=== PATIENT | male | born 1985 | race Caucasian/White ===

== ENCOUNTER 2024-04-05 02:35 | Inpatient (IN) | payer MEDICAID ==
[~2024-04-05] VITALS: Ht 167.6 cm; Wt 97.5 kg
[~2024-04-05 02:35] MED LIST: METO25TA6 PO
[2024-04-05] MEDS: LORAZEPAM 2MG/ML INJ IV STA (04:41)
[2024-04-05 04:48] LABS: BASOPHILS % 0.4 % (0.0-2.0); EOSINOPHILS % 0.1 % (0.0-5.0); HEMATOCRIT. 41.9 % (42.0-52.0); HEMOGLOBIN. 13.8 g/dL (14.0-18.0); LYMPHOCYTES % 7.2 % (20.0-50.0); MEAN CORPUSCULAR VOLUME 84.8 fL (80.0-94.0); MEAN PLATELET VOLUME 7.8 fl (7.4-10.4); MONOCYTES % 13.1 % (2.0-8.0); NEUTROPHILS % 79.2 % (40.0-76.0); PLATELET 353 x1000/uL (130-400); RED BLOOD CELL COUNT 4.95 mill/uL (4.7-6.1); RED CELL DISTRIBUTION WIDTH 17.8 % (11.6-14.6); WHITE BLOOD COUNT 10.6 x1000/uL (4.5-11.0)
[2024-04-05] MEDS: SODIUM CHLORIDE 0.9% 1,000 ML IV ONE (04:48)
[2024-04-05 04:49] LABS: CHLORIDE 102 mEq/L (98-107); POTASSIUM 3.3 mEq/L (3.5-5.1); SODIUM 140 mEq/L (136-145)
[2024-04-05 04:50] LABS: CALCIUM 10.2 mg/dL (8.7-10.4); CARBON DIOXIDE 27 mEq/L (21-32)
[2024-04-05 04:55] LABS: GLUCOSE 128 mg/dL (70-105); UREA NITROGEN BLOOD 6 mg/dL (9-23)
[2024-04-05 04:56] LABS: ETHANOL BLOOD < 10 mg/dL (<10); TROPONIN I HIGH SENSITIVITY 9 ng/L (3.0-53)
[2024-04-05 04:57] LABS: ACETAMINOPHEN < 2 ug/mL (10-30)
[2024-04-05 05:00] LABS: THYROID STIMULATING HORMONE 2.11 uIU/mL (0.55-4.78)
[2024-04-05 05:15] LABS: CREATININE 1.5 mg/dL (0.6-1.3)
[2024-04-05 07:30] LABS: TROPONIN I HIGH SENSITIVITY 9 ng/L (3.0-53)
[2024-04-05] MEDS ORDERED: CLONIDINE 0.1MG TABLET PO PRN (10:15)
[2024-04-05] MEDS ORDERED: ACETAMINOPHEN 325MG TABLET PO PRN ×2 (10:15)
[2024-04-05] MEDS ORDERED: ONDANSETRON HCL 4MG/2ML INJ IV PRN (10:15)
[2024-04-05] MEDS ORDERED: LORAZEPAM 2MG/ML INJ IV PRN (10:15)
[2024-04-05] MEDS ORDERED: IPRATROPIUM/ALBUTEROL 0.5-3(2.5)MG/3ML NEB HHN PRN (10:15)
[2024-04-05] MEDS: POTASSIUM CHLORIDE 20MEQ TABLET SR PO NR (11:07)
[2024-04-05] MEDS: SODIUM CHLORIDE 0.9% 1,000 ML IV SCH (11:08)
[2024-04-05] MEDS: METOPROLOL TARTRATE 25MG TABLET PO SCH (11:08)
[2024-04-06 09:09] LABS: BASOPHILS % 0.9 % (0.0-2.0); EOSINOPHILS % 2.3 % (0.0-5.0); HEMATOCRIT. 41.8 % (42.0-52.0); HEMOGLOBIN. 13.3 g/dL (14.0-18.0); LYMPHOCYTES % 18.5 % (20.0-50.0); MEAN CORPUSCULAR HEMOGLOBIN 27.1 pg (28.0-32.0); MEAN CORPUSCULAR HGB CONC 31.8 g/dL (31.0-37.0); MEAN PLATELET VOLUME 7.6 fl (7.4-10.4); MONOCYTES % 14.2 % (2.0-8.0); NEUTROPHILS % 64.1 % (40.0-76.0); PLATELET 278 x1000/uL (130-400); RED BLOOD CELL COUNT 4.92 mill/uL (4.7-6.1); RED CELL DISTRIBUTION WIDTH 18.6 % (11.6-14.6); WHITE BLOOD COUNT 6.1 x1000/uL (4.5-11.0)
[2024-04-06 09:34] LABS: CARBON DIOXIDE 21 mEq/L (21-32); CHLORIDE 109 mEq/L (98-107); POTASSIUM 3.7 mEq/L (3.5-5.1); SODIUM 140 mEq/L (136-145)
[2024-04-06 09:35] LABS: CALCIUM 9.2 mg/dL (8.7-10.4)
[2024-04-06 09:40] LABS: CREATININE 0.8 mg/dL (0.6-1.3); GLUCOSE 99 mg/dL (70-105); UREA NITROGEN BLOOD 6 mg/dL (9-23)
[2024-04-06 09:41] LABS: ALANINE AMINOTRANSFERASE 37 IU/L (10-49); ALBUMIN 4.1 g/dL (3.2-4.8)
[2024-04-06 09:42] LABS: ASPARTATE AMINOTRANSFERASE 16 IU/L (<34); BILIRUBIN TOTAL 0.6 mg/dL (0.1-1.0)
[2024-04-06] MEDS: PANTOPRAZOLE 40MG DR TABLET PO SCH (10:35)
[2024-04-06 11:22] LABS: CLARITY URINE CLEAR (CLEAR); COLOR URINE YELLOW (YELLOW); GLUCOSE URINE NEGATIVE (NEGATIVE); KETONES URINE NEGATIVE (NEGATIVE); LEUKOCYTE ESTERASE URINE NEGATIVE (NEGATIVE); NITRITE URINE NEGATIVE (NEGATIVE); OCCULT BLOOD URINE NEGATIVE (NEGATIVE); PROTEIN URINE NEGATIVE (NEGATIVE); SPECIFIC GRAVITY URINE 1.012 (1.005-1.030)
[2024-04-06 11:33] LABS: *AMPHETAMINES SCREEN URINE NEGATIVE (NEGATIVE); *BENZODIAZEPINES SCREEN URINE NEGATIVE (NEGATIVE)
[2024-04-06 11:34] LABS: *BARBITURATES SCREEN URINE NEGATIVE (NEGATIVE); *COCAINE SCREEN URINE NEGATIVE (NEGATIVE); CANNABINOID URINE SCREEN PRESUMPTIVE POSITIVE (NEGATIVE); ECSTASY MDMA SCREEN URINE NEGATIVE (NEGATIVE); METHADONE URINE SCREEN NEGATIVE (NEGATIVE); OPIATES URINE SCREEN NEGATIVE (NEGATIVE); PHENCYCLIDINE URINE SCREEN NEGATIVE (NEGATIVE)
[2024-04-07 05:45] VITALS: BP 137/85; PULSE 78; RESP 18; TEMP 36.50292; TEMP 36.5292; O2SAT 95
[2024-04-07 08:05] VITALS: BP 138/76; PULSE 83; RESP 18; TEMP 36.3918; O2SAT 96
[2024-04-07] MEDS ORDERED: GABA-529 PO (11:56)
[2024-04-07] MEDS ORDERED: ARIP300S3 IM (11:56)
[2024-04-07] MEDS ORDERED: QUET25TA PO (11:56)
[2024-04-07 12:01] VITALS: BP 134/84; PULSE 84; RESP 18; TEMP 36.55848; O2SAT 96
[2024-04-07 16:00] VITALS: BP 134/82; PULSE 82; RESP 18; TEMP 36.22512; O2SAT 95
[2024-04-07] MEDS: QUETIAPINE FUMARATE 50MG TABLET PO SCH (18:35)
[2024-04-07 20:00] VITALS: BP 120/78; PULSE 82; RESP 19; TEMP 36.83628; O2SAT 100
[2024-04-07] MEDS: TRAZODONE HCL 50MG TABLET PO SCH (21:16)
[2024-04-07 22:40] LABS: HEPATITIS B SURFACE ANTIGEN NEGATIVE (Negative)
[2024-04-07 23:02] LABS: HEPATITIS C AB NON REACTIVE (Neg) (Negative)
[2024-04-08] VITALS: BP 128/76; PULSE 75; RESP 17; TEMP 36.114; O2SAT 98
[2024-04-08 04:00] VITALS: BP 131/72; PULSE 71; RESP 16; TEMP 36.44736; O2SAT 97
[2024-04-08 08:00] VITALS: BP 110/73; PULSE 77; RESP 18; TEMP 36.72516; O2SAT 97
[2024-04-08 12:00] VITALS: BP 131/90; PULSE 86; RESP 18; TEMP 36.6696; O2SAT 97
[2024-04-08 16:00] VITALS: BP 118/72; PULSE 91; RESP 20; TEMP 36.78072; O2SAT 97
[2024-04-08 20:00] VITALS: BP 113/64; PULSE 87; RESP 18; TEMP 35.66952; O2SAT 94
[2024-04-09] VITALS: BP 109/68; PULSE 92; RESP 18; TEMP 36.44736; O2SAT 95
[2024-04-09 04:00] VITALS: BP 112/72; PULSE 89; RESP 18; TEMP 37.05852; O2SAT 96
[2024-04-09 08:00] VITALS: BP 122/72; PULSE 77; RESP 18; TEMP 36.50292; O2SAT 97
[2024-04-09 12:00] VITALS: BP 117/78; PULSE 79; RESP 17; TEMP 36.44736; O2SAT 96
[2024-04-09 16:00] VITALS: BP 116/78; PULSE 74; RESP 18; TEMP 36.50292; O2SAT 95
[2024-04-09 20:00] VITALS: BP 111/52; PULSE 71; RESP 20; TEMP 36.50292; O2SAT 95
[2024-04-09] MEDS: QUETIAPINE FUMARATE 50MG TABLET PO SCH (21:53)
[2024-04-10] VITALS: BP 125/54; PULSE 72; RESP 20; TEMP 36.55848; O2SAT 95
[2024-04-10 04:00] VITALS: BP 134/55; PULSE 75; RESP 20; TEMP 36.3918; O2SAT 100
[2024-04-10 08:00] VITALS: BP 130/58; PULSE 86; RESP 18; TEMP 36.50292; O2SAT 97
[2024-04-10 12:00] VITALS: BP 128/82; PULSE 77; RESP 17; TEMP 36.50292; O2SAT 100
[2024-04-10 16:00] VITALS: BP 119/72; PULSE 78; RESP 18; TEMP 36.72516; O2SAT 100
[2024-04-10 20:00] VITALS: BP 117/63; PULSE 76; RESP 18; TEMP 35.78064; O2SAT 96
[2024-04-11] VITALS: BP 96/50; PULSE 67; RESP 18; TEMP 36.3918; O2SAT 98
[2024-04-11 04:00] VITALS: BP 104/60; PULSE 65; RESP 18; TEMP 36.61404; O2SAT 100
[2024-04-11 08:00] VITALS: BP 123/59; PULSE 68; RESP 18; TEMP 36.61404; O2SAT 97
[2024-04-11 12:00] VITALS: BP 118/57; PULSE 74; RESP 18; TEMP 36.22512; O2SAT 99
[2024-04-11] MEDS ORDERED: QUET50TA PO (13:10)
[2024-04-11] MEDS ORDERED: TRAZ-251 PO (13:10)
[2024-04-11] MEDS ORDERED: PANT40TA51 PO (13:10)
[2024-04-11 16:00] VITALS: BP 124/71; PULSE 65; RESP 18; TEMP 36.00288; O2SAT 97
[2024-04-11 20:00] VITALS: BP 115/67; PULSE 68; RESP 18; TEMP 36.6696; O2SAT 97
[2024-04-12 04:00] VITALS: BP 124/68; PULSE 65; RESP 18; TEMP 36.78072; O2SAT 97
[2024-04-12 08:00] VITALS: BP 111/61; PULSE 67; RESP 20; TEMP 36.28068; O2SAT 97
[2024-04-12 12:00] VITALS: BP 105/53; PULSE 62; RESP 20; TEMP 36.33624; O2SAT 97
[2024-04-12 16:00] VITALS: BP 125/71; PULSE 68; RESP 20; TEMP 36.33624; O2SAT 97
[2024-04-12 20:00] VITALS: BP 108/60; PULSE 74; RESP 20; TEMP 35.61396; O2SAT 97
[2024-04-13] VITALS: BP 105/53; PULSE 76; RESP 20; TEMP 35.8362; O2SAT 95
[2024-04-13 08:00] VITALS: BP 116/69; PULSE 65; RESP 18; TEMP 36.55848; O2SAT 97
[2024-04-13 12:00] VITALS: BP 108/56; PULSE 67; RESP 18; TEMP 36.22512; O2SAT 97
[2024-04-13 16:00] VITALS: BP 117/63; PULSE 70; RESP 18; TEMP 36.3918; O2SAT 97
[2024-04-13 20:00] VITALS: BP 127/72; PULSE 70; RESP 18; TEMP 37.61412; O2SAT 100
[2024-04-14] VITALS: BP 117/69; PULSE 72; RESP 18; TEMP 36.89184; O2SAT 100
[2024-04-14 04:00] VITALS: BP 121/69; PULSE 74; RESP 18; TEMP 37.11408; O2SAT 100
[2024-04-14 08:00] VITALS: BP 120/70; PULSE 82; RESP 20; TEMP 36.6696; O2SAT 95
[2024-04-14 12:00] VITALS: BP 123/55; PULSE 73; RESP 20; TEMP 36.6696; O2SAT 98
[2024-04-14 16:00] VITALS: BP 128/71; PULSE 76; RESP 20; TEMP 36.78072; O2SAT 100
[2024-04-14 20:00] VITALS: PULSE 73; RESP 18; TEMP 37.05852; O2SAT 96
[2024-04-15] VITALS: BP 123/51; PULSE 81; RESP 17; TEMP 36.33624; O2SAT 98
[2024-04-15 04:00] VITALS: BP 114/63; PULSE 82; RESP 16; TEMP 36.50292; O2SAT 100
[2024-04-15 08:00] VITALS: BP 100/52; PULSE 67; RESP 19; TEMP 35.22504; O2SAT 96
[2024-04-15] MEDS: QUETIAPINE FUMARATE 50MG TABLET PO SCH (10:28)
[2024-04-15 16:00] VITALS: BP 103/53; PULSE 74; RESP 18; TEMP 35.2; O2SAT 94
[2024-04-15] MEDS: DOCUSATE SODIUM 100MG CAPSULE PO PRN (16:37)
[2024-04-15 20:00] VITALS: PULSE 76; RESP 18; TEMP 36.4; O2SAT 94
[2024-04-16] VITALS (8 sets, daily range): BP systolic 100–112; BP diastolic 41–68; PULSE 66–88; RESP 14–20; TEMP 35.9–37.1; O2SAT 94–97
== END 2024-04-16 21:40 | DRG 115 ==
LOC: ER 02:35 → 6EST 06:08 → EDBEDREQSVC 12:17 → 6EST 04-07 07:19
PROVIDERS: ADMIT Internal Medicine; ATTEND Internal Medicine
PROC: GZ56ZZZ Individual Psychotherapy, Supportive (ICD-10-PCS; principal; 2024-04-12)
DX: S09.8XXA Other specified injuries of head, initial encounter (principal); N17.9 Acute kidney failure, unspecified; D72.0 Genetic anomalies of leukocytes; R45.851 Suicidal ideations; D64.9 Anemia, unspecified; E87.6 Hypokalemia; D72.821 Monocytosis (symptomatic); Z20.822 Contact with and (suspected) exposure to COVID-19; G40.909 Epilepsy, unspecified, not intractable, without status epilepticus; R00.0 Tachycardia, unspecified; F31.9 Bipolar disorder, unspecified; F20.9 Schizophrenia, unspecified; K21.9 Gastro-esophageal reflux disease without esophagitis; I10 Essential (primary) hypertension; G47.00 Insomnia, unspecified; W18.39XA Other fall on same level, initial encounter; Z91.148 Patient's other noncompliance with medication regimen for other reason; Y93.89 Activity, other specified; Y92.89 Other specified places as the place of occurrence of the external cause; Y99.8 Other external cause status
CPT/HCPCS: 36415; 71045; 80048; 80307; 80320; 80329; 84443; 84484; 85025; 86705; 87340; 87426; 99291; A4606; A4663; J2060; J7030; G0480

== ENCOUNTER 2024-04-28 03:27 | Emergency (ER) | payer BC, MEDICAID ==
[~2024-04-28] VITALS: Ht 175.3 cm; Wt 110.0 kg
[~2024-04-28 03:27] MED LIST changes: +GABA-529 PO; +PANT40TA51 PO; +QUET50TA PO; +TRAZ-251 PO
[2024-04-28 03:48] VITALS: O2SAT 99
[2024-04-28] MEDS: HALOPERIDOL LACTATE 5MG/ML VIAL IM ONE (04:00)
[2024-04-28 05:06] LABS: BASOPHILS % 0.3 % (0.0-2.0); EOSINOPHILS % 0.1 % (0.0-5.0); HEMATOCRIT. 41.3 % (42.0-52.0); HEMOGLOBIN. 13.5 g/dL (14.0-18.0); LYMPHOCYTES % 7.9 % (20.0-50.0); MEAN CORPUSCULAR HEMOGLOBIN 27.2 pg (28.0-32.0); MEAN CORPUSCULAR HGB CONC 32.7 g/dL (31.0-37.0); MEAN CORPUSCULAR VOLUME 83.3 fL (80.0-94.0); MEAN PLATELET VOLUME 7.4 fl (7.4-10.4); MONOCYTES % 10.7 % (2.0-8.0); PLATELET 433 x1000/uL (130-400); RED BLOOD CELL COUNT 4.96 mill/uL (4.7-6.1); RED CELL DISTRIBUTION WIDTH 18.1 % (11.6-14.6); WHITE BLOOD COUNT 11.5 x1000/uL (4.5-11.0)
[2024-04-28 05:14] LABS: CHLORIDE 102 mEq/L (98-107); POTASSIUM 3.4 mEq/L (3.5-5.1); SODIUM 138 mEq/L (136-145)
[2024-04-28 05:15] LABS: CARBON DIOXIDE 24 mEq/L (21-32)
[2024-04-28 05:16] LABS: CALCIUM 9.7 mg/dL (8.7-10.4)
[2024-04-28 05:21] LABS: GLUCOSE 120 mg/dL (70-105); UREA NITROGEN BLOOD 18 mg/dL (9-23)
[2024-04-28 05:22] LABS: ACETAMINOPHEN < 2 ug/mL (10-30)
[2024-04-28 05:32] LABS: *AMPHETAMINES SCREEN URINE NEGATIVE (NEGATIVE); *BARBITURATES SCREEN URINE NEGATIVE (NEGATIVE); *BENZODIAZEPINES SCREEN URINE NEGATIVE (NEGATIVE); *COCAINE SCREEN URINE NEGATIVE (NEGATIVE); METHADONE URINE SCREEN NEGATIVE (NEGATIVE); OPIATES URINE SCREEN NEGATIVE (NEGATIVE); PHENCYCLIDINE URINE SCREEN NEGATIVE (NEGATIVE)
[2024-04-28 05:33] LABS: CANNABINOID URINE SCREEN PRESUMPTIVE POSITIVE (NEGATIVE); ECSTASY MDMA SCREEN URINE NEGATIVE (NEGATIVE)
[2024-04-28 05:51] LABS: ETHANOL BLOOD < 10 mg/dL (<10)
[2024-04-28 05:52] LABS: CREATININE 1.6 mg/dL (0.6-1.3)
[2024-04-28 20:22] VITALS: BP 136/68; PULSE 105; RESP 14; TEMP 36.6; O2SAT 95
== END 2024-04-28 20:40 ==
LOC: ER 03:34
DX: T43.222A Poisoning by selective serotonin reuptake inhibitors, intentional self-harm, initial encounter (principal); F12.90 Cannabis use, unspecified, uncomplicated; F25.0 Schizoaffective disorder, bipolar type; I10 Essential (primary) hypertension; K21.9 Gastro-esophageal reflux disease without esophagitis; Z79.899 Other long term (current) drug therapy; Z20.822 Contact with and (suspected) exposure to COVID-19; Z88.0 Allergy status to penicillin
CPT/HCPCS: 99291; 87426; 80048; 80307; 85025; 36415; 93005; G0480; 80305; 80320; 80329